=== PATIENT | female | born 1950 | race Caucasian/White ===

== ENCOUNTER 2016-07-27 10:08 | Outpatient (CLI) | payer OTHER, MEDICARE | END 2016-07-27 18:43 | disposition home or self-care (01) | LOC: SMA 10:08 | PROVIDERS: ATTEND Obstetrics & Gynecology | DX: Z12.31 Encounter for screening mammogram for malignant neoplasm of breast (principal) | CPT/HCPCS: G0202 ==

== ENCOUNTER 2017-08-07 09:27 | Outpatient (CLI) | payer OTHER, MEDICARE | END 2017-08-07 18:38 | disposition home or self-care (01) | LOC: SMA 09:27 | PROVIDERS: ATTEND Obstetrics & Gynecology | DX: Z12.31 Encounter for screening mammogram for malignant neoplasm of breast (principal) | CPT/HCPCS: 77067 ==

== ENCOUNTER 2018-08-08 09:39 | Outpatient (CLI) | payer OTHER, MEDICARE | END 2018-08-08 20:53 | disposition home or self-care (01) | LOC: SMA 09:39 | PROVIDERS: ATTEND Obstetrics & Gynecology | DX: Z12.31 Encounter for screening mammogram for malignant neoplasm of breast (principal) | CPT/HCPCS: 77067 ==

== ENCOUNTER 2019-08-24 10:54 | Outpatient (CLI) | payer OTHER, MEDICARE | END 2019-08-24 21:59 | disposition home or self-care (01) | LOC: SMA 10:54 | PROVIDERS: ATTEND Obstetrics & Gynecology | DX: Z12.31 Encounter for screening mammogram for malignant neoplasm of breast (principal); N64.89 Other specified disorders of breast | CPT/HCPCS: 77067 ==

== ENCOUNTER 2021-01-06 09:54 | Outpatient (CLI) | payer OTHER, MEDICARE | END 2021-01-06 10:00 | disposition home or self-care (01) | LOC: SMA 09:54 | PROVIDERS: ATTEND Obstetrics & Gynecology | DX: Z12.31 Encounter for screening mammogram for malignant neoplasm of breast (principal) | CPT/HCPCS: 77067 ==

== ENCOUNTER 2022-02-09 09:56 | Outpatient (CLI) | payer OTHER, MEDICARE | END 2022-02-09 20:28 | disposition home or self-care (01) | LOC: SMA 09:56 | PROVIDERS: ATTEND Obstetrics & Gynecology | DX: Z12.31 Encounter for screening mammogram for malignant neoplasm of breast (principal) | CPT/HCPCS: 77067 ==

== ENCOUNTER 2023-03-22 10:45 | Outpatient (CLI) | payer OTHER, MEDICARE | END 2023-03-22 18:02 | disposition home or self-care (01) | LOC: SMA 10:45 | PROVIDERS: ATTEND Obstetrics & Gynecology | DX: Z12.31 Encounter for screening mammogram for malignant neoplasm of breast (principal) | CPT/HCPCS: 77067 ==